=== PATIENT | female | born 1985 | race Caucasian/White ===

== ENCOUNTER 2016-11-07 19:27 | Emergency (ER) | payer OTHER ==
[~2016-11-07 19:27] MED LIST: BACTRIM DS TAB1 EACH PO; DIFLUCAN150 MG PO; PERCOCET 10-321 EACH PO; PHENERGAN25 M1 PO; PYRIDIUM100 MG PO; UROCIT-K10 MEQ PO; ZOFRAN4 MG PO
== END 2016-11-07 22:36 | disposition home or self-care (01) ==
LOC: ER 19:27
DX: R10.9 Unspecified abdominal pain (principal); R11.0 Nausea; N93.9 Abnormal uterine and vaginal bleeding, unspecified; F31.9 Bipolar disorder, unspecified; Z90.49 Acquired absence of other specified parts of digestive tract; Z98.51 Tubal ligation status
CPT/HCPCS: 36415; 96374; J1885

== ENCOUNTER 2017-02-14 00:06 | Emergency (ER) | payer OTHER | END 2017-02-14 02:22 | disposition home or self-care (01) | LOC: ER 00:06 | DX: N83.201 Unspecified ovarian cyst, right side (principal); F31.9 Bipolar disorder, unspecified | CPT/HCPCS: 96374; 96375; 96376; J1885 ==